=== PATIENT | female | born 1995 | race Two or more races ===

== ENCOUNTER 2017-12-15 01:00 | Emergency (ER) | payer OTHER ==
[~2017-12-15] VITALS: Ht 160 cm; Wt 63.5 kg
[~2017-12-15 01:00] MED LIST: ADVAIR 2501 DISK W/1 IH; PROVENTIL HFA6.7 GM IH; PROVENTIL S1 ML/5 MG; PROVENTIL3 ML/2.5 M IH; PULMICORT90 MCG/AER; SINGULAIR 10MG10 MG PO; SINGULAIR10 MG; SYMBICORT 16010.2 GM IH; ZYNCOF 20-400120 ML PO
[2017-12-15] MEDS ORDERED: PROVENTIL HFA6.7 GM IH (02:57)
[2017-12-15] MEDS ORDERED: SYMBICORT 16010.2 GM IH (02:57)
[2017-12-15] MEDS ORDERED: SINGULAIR 10MG10 MG PO (02:57)
[2017-12-15] MEDS ORDERED: ORAPRED ODT10 MG PO (02:57)
[2017-12-15] MEDS ORDERED: ZYNCOF 20-400120 ML PO (02:57)
[2017-12-15] MEDS ORDERED: ALBUTEROL2.5 MG/3 M IH (02:57)
== END 2017-12-15 03:35 | disposition home or self-care (01) ==
LOC: ER 01:00
DX: J45.998 Other asthma (principal)

== ENCOUNTER → 2018-01-07 | Emergency (ER) | payer OTHER ==
[~2018-01-07] MED LIST changes: +ALBUTEROL2.5 MG/3 M IH; +ORAPRED ODT10 MG PO
== END | disposition left against medical advice (07) ==
LOC: ER 01:49
DX: Z53.20 Procedure and treatment not carried out because of patient's decision for unspecified reasons (principal)

== ENCOUNTER 2018-12-30 20:44 | Emergency (ER) | payer OTHER ==
[~2018-12-30] VITALS: Ht 160 cm; Wt 65.8 kg
== END 2018-12-30 23:11 | disposition home or self-care (01) ==
LOC: ER 20:44
DX: L30.8 Other specified dermatitis (principal)

== ENCOUNTER 2020-10-13 14:34 | Emergency (ER) | payer OTHER ==
[~2020-10-13] VITALS: Ht 160 cm; Wt 61.2 kg
[2020-10-13] MEDS ORDERED: ACETAMINOPHEN650 M2 PO (19:51)
[2020-10-13] MEDS ORDERED: VITAMIN C WIT1000 MG PO (19:51)
[2020-10-13] MEDS ORDERED: MEDROLPACK PO (19:51)
[2020-10-13] MEDS ORDERED: PROAIR HFA8.5 GM IH (19:51)
[2020-10-13] MEDS ORDERED: VITAMIN D3-ALO1 EACH PO (19:51)
== END 2020-10-13 20:09 | disposition home or self-care (01) ==
LOC: ER 14:34
DX: B34.9 Viral infection, unspecified (principal); Z20.828 Contact with and (suspected) exposure to other viral communicable diseases; R06.02 Shortness of breath; R05 Cough

== ENCOUNTER 2023-02-08 18:47 | Emergency (ER) | payer OTHER ==
[~2023-02-08] VITALS: Ht 160 cm; Wt 68.0 kg
[~2023-02-08 18:47] MED LIST changes: +ACETAMINOPHEN650 M2 PO; +MEDROLPACK PO; +PROAIR HFA8.5 GM IH; +VITAMIN C WIT1000 MG PO; +VITAMIN D3-ALO1 EACH PO
== END 2023-02-08 20:57 | disposition home or self-care (01) ==
LOC: ER 18:47
DX: J45.901 Unspecified asthma with (acute) exacerbation (principal); Z88.0 Allergy status to penicillin; Z91.013 Allergy to seafood; Z91.018 Allergy to other foods

== ENCOUNTER 2023-09-26 18:17 | Emergency (ER) | payer OTHER ==
[~2023-09-26] VITALS: Ht 160 cm; Wt 70.3 kg
[2023-09-26 20:18] LABS: HEMATOCRIT 39.7 % (36.0-45.00); HEMOGLOBIN 13.2 g/dL (12.0-15.00); MEAN CELL VOLUME 90.3 fL (80.00-100.00); MEAN CORPUSCULAR HGB CONC 33.3 g/dl (32.0-36.0); PLATELET COUNT 208 K/uL (150-450); RED CELL DISTRIBUTION WIDTH 13.6 % (11.5-14.5)
== END 2023-09-26 21:49 | disposition home or self-care (01) ==
LOC: ER 18:17
PROVIDERS: General Practice
DX: J06.9 Acute upper respiratory infection, unspecified (principal); Z20.822 Contact with and (suspected) exposure to COVID-19

== ENCOUNTER → 2023-09-29 | Emergency (ER) | payer OTHER ==
[~2023-09-29] VITALS: Ht 160 cm; Wt 68.0 kg
[~2023-09-29] MED LIST changes: +PROAIR RESPICL90 MCG
== END | disposition left against medical advice (07) ==
LOC: ER 17:21
DX: R05.9 Cough, unspecified (principal); Z87.09 Personal history of other diseases of the respiratory system; Z91.040 Latex allergy status; Z91.010 Allergy to peanuts; Z88.0 Allergy status to penicillin; Z91.013 Allergy to seafood